=== PATIENT | male | born 1985 | race Native Hawaiian/Other Pacific Islander ===

== ENCOUNTER 2017-05-12 15:52 | Emergency (ER) | payer OTHER ==
[~2017-05-12] VITALS: Ht 180.3 cm; Wt 83.0 kg
[2017-05-12 16:31] VITALS: BP 135/72; TEMP 97.2
== END 2017-05-12 16:33 | disposition home or self-care (01) ==
LOC: ED 15:52
DX: S09.90XA Unspecified injury of head, initial encounter (principal); W22.8XXA Striking against or struck by other objects, initial encounter
CPT/HCPCS: 99282

== ENCOUNTER 2017-06-26 05:51 | Emergency (ER) | payer OTHER ==
[~2017-06-26] VITALS: Ht 180.3 cm; Wt 90.7 kg
[2017-06-26 08:35] VITALS: BP 131/84; TEMP 97.6
== END 2017-06-26 08:35 | disposition home or self-care (01) ==
LOC: ED 05:51
DX: S60.222A Contusion of left hand, initial encounter (principal); S80.01XA Contusion of right knee, initial encounter; Y04.8XXA Assault by other bodily force, initial encounter
CPT/HCPCS: 99282